=== PATIENT | female | born 1935 | race African-American/Black ===

== ENCOUNTER 2017-05-09 11:22 | Observation (INO) | payer MEDICARE, MEDICAID ==
[~2017-05-09] VITALS: Ht 167.6 cm; Wt 65.8 kg
[2017-05-09] MEDS ORDERED: SODIUM CHLORIDE 0.9% 1,000 ML IV ONE (11:59)
[2017-05-09 12:28] LABS: Basophils # (auto) 0.1 uL; Basophils % (auto) 0.7 % (0.0-2.0); Eosinophils # (auto) 0.4 uL; Lymphocytes # (auto) 1.7 uL; Monocytes # (auto) 0.8 uL; Platelet Count (auto) 185 10^3/uL (140-450)
[2017-05-09 12:30] LABS: Eosinophils % (auto) 3.9 % (0.0-7.0); Hemoglobin 9.9 g/dL (12.2-16.2); Mean Corpuscular Hemoglobin 26.3 pg (28.0-32.0); Mean Corpuscular Hgb Conc. 31.9 g/dL (32.0-36.0); Mean Corpuscular Volume 82.3 fL (80.0-100.0); Mean Platelet Volume 9.1 fL (6.9-10.8); Monocytes % (auto) 8.5 % (0.0-12.0); Neutrophils # (auto) 6.4 uL; Neutrophils % (auto) 68.9 % (37.0-80.0); Red Cell Distribution Width 14.4 % (11.8-14.3); White Blood Cell 9.4 10^3/uL (4.4-10.8)
[2017-05-09 12:49] LABS: INR 0.98 (0.9-1.15); Prothrombin Time 10.7 sec (9.37-12.3)
[2017-05-09 12:55] LABS: Albumin 3.4 g/dL (3.4-5.0); Alkaline Phosphatase 96 U/L (45-117); Anion Gap 8 (5-15); Aspartate Aminotransferase 8 U/L (15-37); BUN/Creatinine Ratio 11.8; Bilirubin, Total 0.4 mg/dL (0.2-1.0); Blood Urea Nitrogen 24 mg/dL (7-18); Carbon Dioxide 24 mmol/L (21-32); Chloride 108 mmol/L (98-107); GFR African American 30 mL/min; GFR Non-African American 25 mL/min; Glucose 123 mg/dL (74-106); Magnesium 2.4 mg/dL (1.6-2.6); Potassium 3.7 mmol/L (3.5-5.1); Sodium 140 mmol/L (136-145); Total Protein 8.2 g/dL (6.4-8.2)
[2017-05-09 13:00] LABS: B-Type Natriuretic Peptide 97.1 pg/mL (0-100); Temperature: 23.3 C (20.0-25.0)
[2017-05-09 13:27] LABS: Urine Bilirubin Negative (Negative); Urine Blood Negative /uL (Negative); Urine Color Yellow (Yellow); Urine Glucose Normal (Normal); Urine Ketone Negative (Negative); Urine Nitrite Negative (Negative); Urine RBC 3 /hpf (0 - 4); Urine Squamous Epithelial Cell FEW /hpf (<5); Urine Urobilinogen Normal (Negative); Urine pH 5.5 (5.0-8.0)
[2017-05-09 15:21] VITALS: BP 138/55
== END 2017-05-09 16:30 | disposition left against medical advice (07) | DRG 310 ==
LOC: ER 11:22 → OVERFLOW 12:01 → ER 16:30
PROVIDERS: ADMIT Family Medicine; ATTEND Family Medicine
DX: R00.2 Palpitations (principal); E11.9 Type 2 diabetes mellitus without complications; E78.00 Pure hypercholesterolemia, unspecified; I10 Essential (primary) hypertension; I25.2 Old myocardial infarction; R10.30 Lower abdominal pain, unspecified; M54.9 Dorsalgia, unspecified; R07.9 Chest pain, unspecified
CPT/HCPCS: 36415; 71020; 74176; 80053; 81001; 83735; 83880; 84443; 84484; 85025; 85610; 85730; 93005; 96360; 96361; 99291; G0378